=== PATIENT | male | born 1980 | race Caucasian/White ===

== ENCOUNTER 2017-07-04 14:01 | Emergency (ER) | payer MEDICAID ==
[~2017-07-04] VITALS: Ht 180.3 cm; Wt 97.0 kg
[~2017-07-04 14:01] MED LIST: NO HOME MEDS
[2017-07-04 14:36] LABS: INR 1.1 INR; PARTIAL THROMBOPLASTIN TIME 23 SECONDS (22-32); PROTHROMBIN TIME 11.3 SECONDS (9.0-12.0)
[2017-07-04 14:44] LABS: BASOPHILS # (AUTO) 0.1 X10'3 (0-0.2); BASOPHILS % (AUTO) 0.8 % (0-1); EOSINOPHILS # (AUTO) 0.3 X10'3 (0-0.9); EOSINOPHILS % (AUTO) 3.8 % (0-6); HEMOGLOBIN 16.3 g/dl (14.0-17.9); LYMPHOCYTES # (AUTO) 1.8 X10'3 (1.1-4.8); LYMPHOCYTES % (AUTO) 23.7 % (21-51); MEAN CORPUSCULAR HEMOGLOBIN 31.4 PG (27.0-31.0); MEAN CORPUSCULAR HGB CONC 33.8 % (33.0-36.5); MEAN CORPUSCULAR VOLUME 92.8 FL (78-98); MEAN PLATELET VOLUME 7.9 FL (7.4-10.4); MONOCYTES # (AUTO) 0.8 X10'3 (0-0.9); MONOCYTES % (AUTO) 10.9 % (2-12); NEUTROPHILS # (AUTO) 4.6 X10'3 (1.8-7.7); NEUTROPHILS % (AUTO) 60.8 % (42-75); PLATELET COUNT 290 X10'3 (140-440); RED BLOOD COUNT 5.18 X10'6 (4.70-6.10); RED CELL DISTRIBUTION WIDTH 13.7 % (11.5-14.5); WHITE BLOOD COUNT 7.6 X10'3 (4.5-11.0)
[2017-07-04 14:47] LABS: ALANINE AMINOTRANSFERASE 153 U/L (12-78); ALBUMIN 3.6 G/DL (3.4-5.0); ALKALINE PHOSPHATASE 89 IU/L (46-116); ANION GAP 8 (8-16); ASPARTATE AMINO TRANSFERASE 83 U/L (10-37); BILIRUBIN,TOTAL 0.3 MG/DL (0.1-1.0); BLOOD UREA NITROGEN 16 MG/DL (7-18); BUN/CREATININE RATIO 12.1 (5.4-32.0); CALCIUM 8.8 MG/DL (8.5-10.1); CHLORIDE 108 MMOL/L (99-107); CREATININE 1.32 MG/DL (0.60-1.10); GLUCOSE 86 MG/DL (70-104); POTASSIUM 4.2 MMOL/L (3.5-5.1); SODIUM 142 MMOL/L (135-145); TOTAL CARBON DIOXIDE 25.8 MMOL/L (24-32); TOTAL PROTEIN 7.1 G/DL (6.4-8.2); eGFR 62 ML/MIN
[2017-07-04] MEDS ORDERED: normal saline 1000ML IV soln IVB ONE (15:30)
[2017-07-04] MEDS ORDERED: iohexol 350MG/ML 100ml bottle IV ONE ×2 (15:37→17:07)
[2017-07-04] MEDS ORDERED: normal saline 1000ML IV soln IV ONE (17:00)
[2017-07-04 18:21] VITALS: BP 115/57
== END 2017-07-04 18:25 | disposition home or self-care (01) ==
LOC: ER 14:02
DX: R07.9 Chest pain, unspecified (principal); R05 Cough; I10 Essential (primary) hypertension; E78.00 Pure hypercholesterolemia, unspecified
CPT/HCPCS: 36415; 71046; 71275; 80053; 83880; 84484; 85025; 85610; 85730; 93005; 96360; 96361; 99285; A6222; J7030; Q9967

== ENCOUNTER 2017-07-06 17:12 | Emergency (ER) | payer MEDICAID ==
[~2017-07-06] VITALS: Ht 180.3 cm; Wt 104.8 kg
[2017-07-06] MEDS ORDERED: iohexol 350MG/ML 100ml bottle IV ONE (21:16)
[2017-07-06] MEDS ORDERED: ATOR20TA PO (21:23)
[2017-07-06] MEDS ORDERED: LISI10TA4 PO (21:23)
[2017-07-06] MEDS ORDERED: ESCI20TA PO (21:23)
[2017-07-06 22:33] VITALS: BP 131/87
== END 2017-07-06 23:00 | disposition home or self-care (01) ==
LOC: ER 17:12
DX: R06.00 Dyspnea, unspecified (principal); E78.00 Pure hypercholesterolemia, unspecified; I10 Essential (primary) hypertension; Z79.899 Other long term (current) drug therapy
CPT/HCPCS: 71275; 93005; 99284; J7030; Q9967

== ENCOUNTER 2018-04-20 20:36 | Emergency (ER) | payer MEDICAID ==
[~2018-04-20] VITALS: Ht 180.3 cm; Wt 94.2 kg
[~2018-04-20 20:36] MED LIST changes: +ATOR20TA PO; +CYCL-394 PO; +ESCI20TA PO; +LISI10TA4 PO; -NO HOME MEDS; +OMEP40CA37 PO; +TRAZ-218 PO
[2018-04-20] MEDS ORDERED: morphine 4 MG/ML inj SYRINge IM ONE ×2 (21:20→22:35)
[2018-04-20 22:33] VITALS: BP 158/113
== END 2018-04-20 23:36 | disposition home or self-care (01) ==
LOC: ER 20:36
DX: M54.5 Low back pain (principal); E78.00 Pure hypercholesterolemia, unspecified; I10 Essential (primary) hypertension; G89.29 Other chronic pain; Z98.890 Other specified postprocedural states; Z88.8 Allergy status to other drugs, medicaments and biological substances; Z79.899 Other long term (current) drug therapy
CPT/HCPCS: 96372; 99283; J2270